=== PATIENT | female | born 1990 | race African-American/Black ===

== ENCOUNTER → 2017-12-07 | Outpatient (CLI) | payer OTHER | LOC: RAD 08:31 | DX: K80.20 Calculus of gallbladder without cholecystitis without obstruction (principal); E66.01 Morbid (severe) obesity due to excess calories; Z90.3 Acquired absence of stomach [part of]; Z68.42 Body mass index [BMI] 45.0-49.9, adult ==

== ENCOUNTER → 2018-01-26 | Outpatient (CLI) | payer OTHER ==
[~2018-01-26] VITALS: Ht 170.2 cm; Wt 138.3 kg
[~2018-01-26] MED LIST: FOLIC ACID1 MG PO; IRON325 PO; NORGESTIMATE-E1 EACH PO; ZOLOFT50 MG PO
--- NOTE | ~2018-01-26 | O ---
[facility] [place] [address] OPERAT[facility] RE[facility]: [facility]#: [id number] Admission: 01/26/18 Attend Phys: Deepak Bhakta MD, F Discharge: Date of : 89 Report #: [id number] THIS REPORT FOR: //name// CC: [facility] physician/PCP Deepak Bhakta DATE OF SERVICE: 01/26/2018 SURGEON: Deepak Bhakta MD [employer]: None. PREPROCEDURE DIAGNOSES: 1. Morbid obesity (body mass index 48.3), status post previous laparoscopic sleeve gastrectomy. 2. Snoring with daytime somnolence. 3. Hirsutism. 4. Depression. POSTOPERATIVE DIAGNOSES: 1. Morbid obesity (body mass index 48.3), status post previous laparoscopic sleeve gastrectomy. 2. Small hiatal hernia. 3. Snoring with daytime somnolence. 4. Hirsutism. 5. Depression. PROCEDURE: Thorough esophagogastroduodenoscopy. ANESTHESIA: Monitored anesthetic care (20 mg ketamine, 200 mg propofol). ESTIMATED BLOOD LOSS: None. SPECIMEN: None. COMPLICATIONS: None appreciated. INDICATIONS FOR PROCEDURE: This is a 27-year-old female patient who is being followed for consideration for revisional bariatric surgery. She underwent a laparoscopic sleeve gastrectomy approximately 2 years ago at [facility] by Dr. Jerry Clarke. She reports having lost over 80 pounds with her sleeve, with a starting weight of 365 pounds. She has gained weight to her current weight of 308 pounds since that time with a BMI of 48.3. She has been unable to lose significant weight with physician supervised monitoring. The patient does report feeling hungry often. She underwent an upper GI study showing surgical changes of a previous sleeve gastrectomy. The stomach was felt [facility] [address] [place] [address] OPERATIVE REPORT Name: [facility] Room #: [facility]#: [id number] Admission: 01/26/18 Attend Phys: Deepak Bhakta MD, F Discharge: Date of : 89 Report #: [id number] to be generous in size considering her history of a sleeve gastrectomy. A significant hiatal hernia was not demonstrated on that study. The patient presents now for EGD. OPERATIVE FINDINGS: The GE junction and Z line was measured at 38 cm from the teeth. A small hiatal hernia was present. There appeared to be a generous bird's beak in the upper stomach. The body of the stomach appeared relatively normal, although also dilated for having a history of a sleeve gastrectomy. No polyps, masses, diverticula or ulcers were seen. The duodenum was normal to the third portion as well. On retroflexion of the scope, the hiatal hernia was evident. DESCRIPTION OF PROCEDURE IN DETAIL: After the risks, benefits, and expectations of the procedure were explained to the patient, which included but not limited to risks of bleeding and perforation, informed consent was obtained. The patient was identified in the preoperative holding area. She was then taken to the procedure room and a timeout was performed to identify the correct patient and procedure. A bite block was placed and the patient was given appropriate anesthesia intravenously. When adequately sedated, the gastroscope was inserted into the patient's oropharynx and passed down into the esophagus beyond the lower esophageal sphincter and into the body of the stomach. The scope was then advanced beyond the pylorus to the third portion of the duodenum. The scope was then slowly withdrawn. Circumferential views of the duodenum showed no polyps, masses, diverticula, or ulcers. Similarly, the stomach appeared to be a relatively normal size and a previous sleeve gastrectomy was not felt to have been performed other than the generous bird's beak that was present. No other significant pathology was seen. The stomach was decompressed and the scope was slowly withdrawn through the otherwise normal appearing esophagus. The patient tolerated the procedure well. She was awakened and taken to recovery room in stable condition with no apparent intraprocedural complications. My recommendation is that the patient be started on proton pump inhibitor to prepare her stomach for the operation. She would benefit from a revisional sleeve gastrectomy as her current stomach appears to have either stretched or an inadequate amount of stomach was removed to provide appropriate weight loss. The patient will keep her scheduled followup with me at the end of the month. By: [id number] Deepak Bhakta MD, FACS /nt
== END | disposition home or self-care (01) ==
LOC: GI 12-15 11:45
DX: K21.9 Gastro-esophageal reflux disease without esophagitis (principal); K44.9 Diaphragmatic hernia without obstruction or gangrene; E66.01 Morbid (severe) obesity due to excess calories; Z68.42 Body mass index [BMI] 45.0-49.9, adult; F32.9 Major depressive disorder, single episode, unspecified; F41.9 Anxiety disorder, unspecified; D64.9 Anemia, unspecified; Z98.890 Other specified postprocedural states
CPT/HCPCS: 62110; 62900